=== PATIENT | female | born 2000 ===

== ENCOUNTER 2021-05-10 10:45 | Outpatient (RCR) | payer OTHER, SELFPAY ==
--- NOTE | 2021-05-09 15:21 | PC.ADMIT ---
Patient is a 20 year old female college student who is taking the semester off to work on her mental health. Patient struggling with depression, irritability, and mood swings. Patient also reports she starting cutting herself 2 weeks ago, which is new for her, and reports scars above her knees and on L thigh as a result. Patient also reports needing 10 stitches on her R calf d/t cutting herself with scissors and the stitches were recently taken out. Patient stated that is the last time she is going to do that. Reports a new diagnosis of Bipolar d/o. Patient reports she was hospitalized at [facility] on 04/30/21-05/04/2021 for mood stabilization. Patient reports she continues with the above symptoms. Denied SI or thoughts to harm herself. Patient met with crisis and crisis wanted to refer her to an outpatient program per patient. Per SOLAR INSTALLATION MANAGER evaluation SOLAR INSTALLATION MANAGER referred patient to [facility] for treatment. Patient reports while in college she would drink ETOH multiple times a week and was smoking marijuana daily for the past few months. Use has decreased d/t moving back home with her parents. Patient is alert and oriented x4. Presents with depressed mood and affect. Denied SI. Medications reconciled with patient and patient's pharmacy. Patient stated her prescriber told her to take Seroquel ER 50 mg BID however pharmacy stated once daily at . Patient had another prescription per pharmacy that was never picked up of Seroquel 50 mg BID. I called patient's prescriber and left a message to call me back to rectify patients medications. Ani Hui NP is aware.
--- NOTE | 2021-05-09 17:32 | HO.PS.ADMBH ---
[facility] Date of Service: 05/09/21 Chief Complaint: Bipolar Disorder Sources of Information: patient interviewed, chart reviewed and crisis/core team assessment reviewed HPI Guardianship: No Medical Problems Affecting Mental Status: No Narrative: Ms. Cordon is a 20 year old single female, referred to [facility] through her mother. She had presented to crisis on 04/26/2021, due to a self-inflicted cut on her leg. She had been hospitalized under a Section 12 at that time, for 3 days, at [facility]. This was her 1st psychiatric hospitalization. She describes worsening symptoms including depression, agitation, negative thinking, which had worsened over the past several months. She says that less than 1 year ago she had been diagnosed with a bipolar type mood disorder. She states that she 1st noticed any type of symptoms when she was in middle school, when she experienced bad anxiety . This was also soon after her parents had , with subsequent divorce. She currently divides her time between her father's home and her mother's home. She was raised by both parents until they when she was 14 years old. She 1st began therapy as 19, with an outpatient therapist. She has been taking medications for approximately the past year. She is currently in a relationship, and describes her partner as supportive. She has taken time off from college at this time, in order to treat her mental health symptoms. She endorses symptoms of depression including anhedonia, feeling hopeless and helpless, increased guilt. She denies SI/HI at this time, does report that she has recently engaged in self harming behaviors such as cutting. She does have a psychiatrist/therapist that she meets with weekly. She states that as a teen she was placed on an antidepressant briefly, but she does not remember the name. She also took Abilify briefly, but it caused her anxiety and stopped. Over the past year she has been placed on a combination of lithium, Seroquel, and Lexapro. She reports that at 1st it was not effective, but had not been taking it consistently. She states that now that she is taking it daily, it is beginning to improve her mood, with lessening depressive symptoms. Past Psychiatric History: recent 3-day IPLOC / section 12 at [facility] 04/26/2021. No history of [facility], [facility]. Has a current psychiatric provider/therapist, Dr. Comfort Naidu, . Medical Evaluation Reviewed: No (not yet available) [facility] Medical History History of inguinal hernia Family History: Mother and uncle: Bipolar disorder. Maternal grandfather: Anxiety. Social History: Client was raised by both parents until their separation when she was 14 years old. Currently divides time between both parents homes. Met developmental milestones as expected, graduated high school. Recently was in college, withdrew due to mental health symptoms. Plans to return in the fall. In a relationship, describes both family and significant other as supportive. Substance History: Cannabis daily use x5 years. Last use March 2021. Trauma History: Denies Meds/Allergies Allergies Allergies Allergy/AdvReac Type Severity Reaction Status Date / Time No Known Allergies Allergy Verified 05/09/21 10:52 Mental Status Exam Mental Status Exam Narrative: Well-developed, well-nourished female, in NAD. No abnormal movements, no tics tremors observed. Patient Appearance: Well Grooomed and Appropriate Patient Orientation: Person, Place, Time and Situation Level of Consciousness: Awake, Appropriate and Alert Patient Behavior: Guarded, Cooperative and Good Eye Contact Mood Description: Depressed Affect Description: Constricted and Depressed Patient Cognition Impaired: No Ability to Follow Directions: Excellent Speech Pattern: Clear and Coherent Memory Description: Intact Hallucinations: None Delusions: Not Present Thought Process: Intact Thought Content: positive for Intact Depressive Symptoms: Increased Anxiety, Loss of Int. in Activity, Feelings of Worthlessness, Hopelessness, Feelings of Guilt, Unhappiness and Difficulty Concentrating Judgement: Fair Telehealth Telehealth Location of provider rendering services: practice address Location of patient: address on file Patient Identification confirmed using: Name, : Yes Telehealth method: video Patient verbally consented to treatment: Yes Patient verbally consented to billing insurance company: Yes Patient informed of any privacy concerns related to visit: Yes Time spent with patient (mins): 45 Assessment & Plan Assessment & Plan (1) Bipolar disorder, current episode depressed, mild or moderate severity, unspecified: Status: Acute Code(s): F31.30 - Bipolar disorder, current episode depressed, mild or moderate severity, unspecified Assessment and Plan: Client reports that she has noted dysregulated mood including increased symptoms of depression, with some anxiety over the past several months. She was recently hospitalized for 3 day stay due to self harming behavior (cutting leg) and feeling overwhelmed. She does deny I any suicidal ideation, homicidal ideation, intrusive thoughts. When discussing bipolar disorder versus major depressive disorder, she states that she was informed by her psychiatrist that she has a ?bipolar type ?disorder. She states that she has experienced anxiety and depressive symptoms since she was a teen. She currently receives a combination of lithium, Seroquel, and Lexapro. She states that her lithium level was low, because she was not taking it daily as prescribed, due to forgetting. She states that since she has been taking it daily, she is now beginning to feel her mood is improving. She does not feel she needs any medication changes at this time, as she wants to give this current medication combination a fair trial. (2) Cannabis abuse: Status: Acute Code(s): F12.10 - Cannabis abuse, uncomplicated Assessment and Plan: Client reports that although her cannabis use was daily for 5 years, she has not found it difficult to stop, denies any type of cravings or withdrawals. She does not identify this as a substance use disorder. Plan 1. Admitted to [facility]. 2. Follow [facility] plan of care. 3. Continue with current medication regimen as prescribed by outpatient psychiatrist. 4. Follow-up as per protocol. Patient educated on: diagnosis, medication risk/benefits, substance abuse and therapeutic strategies Informed Consent: understands Reason for continued partial hosp. stay Substantial Risk for: harm to self, inability to function and med/psych decompensation Certification I certify that partial hospital treatment is medically necessary due to the symptoms and problems resulting from the patient's mental illness and the failure to treat the patient at the partial hospital level of care would likely result in the patient requiring inpatient psychiatric care which could not be prevented at a less intensive level of care.
--- NOTE | 2021-05-10 16:06 | PC.NURSE ---
Case opened in treatment team.
== END 2021-05-10 23:59 ==
LOC: HO.PHPA 10:45
PROVIDERS: Visit Provider Psychiatry & Neurology Psychiatry
DX: F31.30 Bipolar disorder, current episode depressed, mild or moderate severity, unspecified (principal); F12.10 Cannabis abuse, uncomplicated; Z79.899 Other long term (current) drug therapy
CPT/HCPCS: 90791; 90853